=== PATIENT | female | born 1985 | race Asian ===

== ENCOUNTER 2017-02-26 15:07 | Inpatient (IN) | payer OTHER ==
[2017-02-26] MEDS ORDERED: OBEPIDURAL* 250 ML ONE (16:26)
[2017-02-26] MEDS ORDERED: Famotidine TAB* 20 MG PO PRN (17:01)
[2017-02-26] MEDS ORDERED: Phenylephrine IV* 40 MCG/ML 10 ML SYRINGE IV PUSH PRN ×2 (17:01)
[2017-02-26] MEDS ORDERED: Sodium Citrate/Citric Acid* 15 ML UDC PO PRN (17:01)
[2017-02-26 18:19] LABS: Hematocrit 37 % (35-47); Hemoglobin 12.5 g/dl (12.0-16.0); Mean Corpuscular HGB Conc 33 g/dl (31-36); Mean Corpuscular Hemoglobin 30 pg (27-31); Mean Corpuscular Volume 89 fL (80-97); Mean Platelet Volume 11 um3 (7.4-10.4); Red Cell Distribution Width 17 % (10.5-15); White Blood Count 10.9 10^3/ul (3.5-10.8)
[2017-02-26] MEDS ORDERED: Witch Hazel PAD* JAR ONE (21:48)
[2017-02-26] MEDS ORDERED: Dibucaine 1% 28.35 GM TUBE ONE (21:48)
[2017-02-26] MEDS ORDERED: oxyCODONE/Acetamin 5/325 MG* TAB PO PRN (23:07)
[2017-02-26] MEDS ORDERED: Dibucaine 1% 28.35 GM TUBE PR PRN (23:07)
[2017-02-26] MEDS ORDERED: Acetaminophen TAB* 325 MG PO PRN (23:07)
[2017-02-26] MEDS ORDERED: Witch Hazel PAD* JAR TOPICAL PRN (23:07)
[2017-02-27] MEDS: Ibuprofen TAB* 600 MG PO PRN ×2 (04:05→09:55)
[2017-02-27 07:04] LABS: Hematocrit 30 % (35-47); Mean Corpuscular HGB Conc 34 g/dl (31-36); Mean Corpuscular Hemoglobin 30 pg (27-31); Mean Corpuscular Volume 88 fL (80-97); Mean Platelet Volume 10 um3 (7.4-10.4); Red Blood Count 3.35 10^6/ul (4.0-5.4); Red Cell Distribution Width 16 % (10.5-15); White Blood Count 11.2 10^3/ul (3.5-10.8)
[2017-02-27] MEDS ORDERED: Ferrous Gluconate TAB* 324 MG TAB PO SCH (09:00)
[2017-02-27] MEDS: Docusate CAP* 100 MG PO SCH ×3 (09:55→22:30)
[2017-02-27] MEDS: OBEPIDURAL* 250 ML EPIDURAL SCH (20:49)
--- NOTE | 2017-02-28 07:34 | PTEDU ---
Patient Name: ZAIRE BEY MAIDA ZAIRE selected video: Never Ever Shake a Baby to view on 02/28/2017 at 7:33:[address] [id number]
[2017-02-28 08:18] VITALS: BP 98/62
[2017-02-28] MEDS: Docusate CAP* 100 MG PO SCH (08:52)
--- NOTE | 2017-02-28 09:38 | PTEDU ---
Patient Name: ZAIRE BEY MAIDA ZAIRE selected video: Never Ever Shake a Baby to view [facility]28[facility]2017 [facility] 9[facility]37:54 [id number]
[2017-02-28] MEDS ORDERED: Glycerin ADULT SUPP ONE (10:36)
== END 2017-02-28 12:45 | disposition home or self-care (01) | DRG 775 ==
LOC: MCHOBOUT 15:07 → MCHOB 15:59
PROVIDERS: ADMIT Midwife; ATTEND Midwife
PROC: 0KQM0ZZ Repair Perineum Muscle, Open Approach (ICD-10-PCS; principal; 2017-02-26)
PROC: 10E0XZZ Delivery of Products of Conception, External Approach (ICD-10-PCS; 2017-02-26)
PROC: 10907ZC Drainage of Amniotic Fluid, Therapeutic from Products of Conception, Via Natural or Artificial Opening (ICD-10-PCS; 2017-02-26)
PROC: 4A1HX4Z Monitoring of Products of Conception, Cardiac Electrical Activity, External Approach (ICD-10-PCS; 2017-02-26)
DX: O70.1 Second degree perineal laceration during delivery (principal); Z37.0 Single live birth; Z3A.39 39 weeks gestation of pregnancy
CPT/HCPCS: 36415; 85025; 86850; 86900; 86901; A9270-GY

== ENCOUNTER 2019-10-13 02:21 | Inpatient (IN) | payer OTHER ==
--- NOTE | 2019-10-13 02:58 | HP ---
General Information - Reason for Visit contractions - General Information Maternal Age: 34 Grav: 3 Para: 1 SAB: 1 IEA: 0 Estimated Due Date: 10/19/19 Determined By: LMP Maternal Blood Type and Rh: A Positive - Results this Serology/RPR Result: Non-Reactive Rubella Result: Immune HBsAg Result: Negative HIV Result: Negative GBS Culture Result: Negative Past Medical History Delivery History: Hx Uncomplicated Vaginal Delivery - SVB 02/2017 Pertinent Past Medical History: Non-Contributory Pertinent Past Surgical History: See Records Past Surgical History Comment: Laser coagulation of placental vessels for TTTS 2016 - Antepartal Records Antepartal Records: Reviewed, Complicated by: - AMA Exam Allergies/Adverse Reactions: Allergies No Known Allergies Allergy (Verified 02/26/17 15:42) - Measurements Height: 5 ft 5 in Weight: 148 lb Weight in lbs: 148.750115 Body Mass Index (BMI): 24.6 Pre- Weight: 120 lb Weight Gained This : 28 lbs and 0 ozs - Ultrasound/Biophysical Profile Ultrasound Status: Not Done Targeted Exam Findings Cervical Exam: Complete - Not done, patient delivering upon arrival EFM Findings - External Monitor Findings Contraction Frequency: EFM not done Assessment/Plan - Assessment IUP @ 39+1 weeks gestation, SROM at home, delivery imminently upon arrival - Date/Time of Admission Date of Admission: 10/13/19 Time of Admission: 02:32
[2019-10-13] MEDS ORDERED: Ibuprofen TAB* 600 MG PO PRN (03:00)
[2019-10-13] MEDS ORDERED: Glycerin ADULT SUPP PR PRN (03:00)
[2019-10-13] MEDS ORDERED: Witch Hazel PAD* JAR TOPICAL PRN (03:00)
[2019-10-13] MEDS ORDERED: Dibucaine 1% 28.35 GM TUBE PR PRN (03:00)
[2019-10-13] MEDS ORDERED: Acetaminophen TAB* 325 MG PO PRN (03:00)
[2019-10-13] MEDS ORDERED: Lactated Ringers 1000 ML Bag* 1,000 ML IV SCH (03:00)
--- NOTE | 2019-10-13 03:28 | PROCNOTE ---
[facility]: Delivery Note - Delivery A Date of : 10/13/19 Time of : 02:32 Sex: Male Score 1 Minute: 9 Score 5 Minutes: 9 Gestational Age in Weeks and Days at Delivery: 39 Weeks and 1 Days Delivery Method: Spontaneous Vaginal Labor: Spontaneous Amniotic Fluid: Clear Estimated Blood Loss: 150 Anesthesia/Analgesia: None Delivered By: Jodi Jarvis - Placenta by Tuan Goodrich CNM - Nursery Level of Nursery: Regular/Bedside - Perineum Perineal Injury: None/Intact, Abrasion Only - Not Repaired - Events Delivery Events of Note: Precipitous Delivery - Additional Delivery Notes Additional Delivery Notes: Spontaneous rupture of membranes at home with quick progression of labor. Patient arrived to L&D at complete and pushing with near immediate delivery by Nuvia Jarvis RN at 0232. Cord doubly clamped and cut by RN. This CNM at bedside by approx 6 minutes post delivery, placenta delivered with gentle cord traction @ 0239. Perineum swollen with small, hemostatic abrasions, no repair. Fundus firm to massage. Baby and mother stable.
[2019-10-13] MEDS: Docusate CAP* 100 MG PO SCH ×3 (08:53→21:09)
[2019-10-13 10:01] LABS: Urine Benzodiazepine Screen None Detected (None Detect); Urine Opiates Screen None Detected (None Detect)
[2019-10-14 06:17] LABS: ABS Eosinophils 0.1 10^3/ul (0-0.6); ABS Lymphocytes 2.3 10^3/ul (1.0-4.8); ABS Monocytes 0.6 10^3/ul (0-0.8); ABS Neutrophils 4.9 10^3/ul (1.5-7.7); Eosinophil % 0.9 %; Hematocrit 32 % (35-47); Hemoglobin 10.8 g/dL (12.0-16.0); Lymphocyte % 29.5 %; Mean Corpuscular HGB Conc 34 g/dL (31-36); Mean Corpuscular Hemoglobin 28 pg (27-31); Mean Corpuscular Volume 83 fL (80-97); Nucleated Red Blood Cells % 0.1; Platelet Count 193 10^3/uL (150-450); Red Blood Count 3.82 10^6 /uL (3.70-4.87); Red Cell Distribution Width 15 % (10-15)
[2019-10-14] MEDS: Docusate CAP* 100 MG PO SCH ×3 (08:47→21:10)
[2019-10-14] MEDS: Ferrous Gluconate TAB* 324 MG TAB PO SCH ×2 (08:59→21:11)
[2019-10-15] MEDS: Docusate CAP* 100 MG PO SCH (09:39)
[2019-10-15 12:59] VITALS: BP 103/51
== END 2019-10-15 14:20 | disposition home or self-care (01) | DRG 807 ==
LOC: MCHOBOUT 02:21 → MCHOB 02:32
PROVIDERS: ADMIT Midwife; ATTEND Midwife
PROC: 10E0XZZ Delivery of Products of Conception, External Approach (ICD-10-PCS; principal; 2019-10-13)
DX: O62.3 Precipitate labor (principal); Z37.0 Single live birth; O70.0 First degree perineal laceration during delivery; Z3A.39 39 weeks gestation of pregnancy
CPT/HCPCS: 36415; 80307; 85025; A9270-GY; G0480

== ENCOUNTER 2022-10-21 | Inpatient (IN) ==
[2022-10-21] MEDS ORDERED: Nalbuphine 10 MG/ML 1 ML VIAL IV PRN (00:17)
[2022-10-21] MEDS ORDERED: Buffered Lidocaine 1% SYRIN 1 ml INTRADERM ONE (00:17)
[2022-10-21] MEDS ORDERED: Lactated Ringers 1000 ml BAG 1,000 ML IV ONE (00:17)
[2022-10-21] MEDS ORDERED: Promethazine INJ(RESTRICTED) 25 MG/ML 1 ml VIAL IV PRN (00:17)
[2022-10-21 00:38] LABS: ABS Lymphocytes 2.1 10^3/ul (1.0-4.8); ABS Monocytes 0.5 10^3/ul (0-0.8); ABS Neutrophils 4.2 10^3/ul (1.5-7.7); Eosinophil % 0.4 %; Hematocrit 35 % (35-47); Hemoglobin 11.6 g/dL (12.0-16.0); Mean Corpuscular HGB Conc 33 g/dL (31-36); Mean Corpuscular Hemoglobin 29 pg (27-31); Mean Corpuscular Volume 87 fL (80-97); Mean Platelet Volume 10.5 fL (7.4-10.4); Nucleated Red Blood Cells % 0.2; Platelet Count 202 10^3/uL (150-450); Red Blood Count 4.01 10^6 /uL (3.70-4.87); Red Cell Distribution Width 15 % (10-15); White Blood Count 6.9 10^3/uL (3.5-10.8)
[2022-10-21] MEDS ORDERED: Lactated Ringers 1000 ml BAG 1,000 ML IV SCH ×2 (01:00→03:00)
[2022-10-21] MEDS ORDERED: Dibucaine 1% OINT 28.35 GM TUBE PR PRN (02:57)
[2022-10-21] MEDS ORDERED: Witch Hazel PAD JAR TOPICAL PRN (02:57)
[2022-10-21] MEDS ORDERED: Glycerin ADULT 2.4 gm SUPP PR PRN (02:57)
[2022-10-21 11:39] LABS: Urine Benzodiazepine Screen None Detected (None Detect); Urine Cannabinoids Screen None Detected (None Detect); Urine Opiates Screen None Detected (None Detect)
[2022-10-22 08:08] VITALS: BP 100/67
[2022-10-22 10:22] LABS: ABS Basophils 0.1 10^3/ul (0-0.2); ABS Lymphocytes 1.6 10^3/ul (1.0-4.8); ABS Monocytes 0.3 10^3/ul (0-0.8); Eosinophil % 0.4 %; Hematocrit 33 % (35-47); Hemoglobin 10.9 g/dL (12.0-16.0); Lymphocyte % 22.9 %; Mean Corpuscular HGB Conc 33 g/dL (31-36); Mean Corpuscular Hemoglobin 29 pg (27-31); Mean Corpuscular Volume 87 fL (80-97); Mean Platelet Volume 10.1 fL (7.4-10.4); Platelet Count 182 10^3/uL (150-450); Red Blood Count 3.82 10^6 /uL (3.70-4.87); Red Cell Distribution Width 15 % (10-15)
== END 2022-10-22 13:34 | disposition home or self-care (01) | DRG 807 ==
LOC: MCHOBOUT → MCHOB 00:20
PROVIDERS: ADMIT Advanced Practice Midwife; ATTEND Advanced Practice Midwife